=== PATIENT | male | born 1970 | race Caucasian/White ===

== ENCOUNTER 2018-11-20 14:32 | Emergency (ER) | payer OTHER ==
[2018-11-20 14:44] VITALS: BP 140/87
--- NOTE | 2018-11-20 15:01 | UC ---
UC General HPI - HPI Summary HPI Summary: pain in L forefoot for bout 3 weeks. it began after he wore a new pair of shoes. he has since gone back to the old pair. he has self tx with gel inserts with no relief. the pain is sharp and sometimes shoots upward. he notes mild swelling. no fever, rash or injury. best upon waking then worsens during day while walking. - History of Current Complaint Chief Complaint: UCLowerExtremity Stated Complaint: LEFT FOOT COMPLAINT Time Seen by Provider: 11/20/18 14:54 Hx Obtained From: Patient Onset/Duration: Gradual Onset Timing: Constant Pain Intensity: 6 Associated Signs & Symptoms: Positive: Edema. Negative: Fever - Allergy/Home Medications Allergies/Adverse Reactions: Allergies Allergy/AdvReac Type Severity Reaction Status Date / Time No Known Allergies Allergy Verified 11/20/18 14:45 PMH/Surg Hx/FS Hx/Imm Hx Previously Healthy: Yes - Surgical History Surgical History: Yes Surgery Procedure, Year, and Place: Vasectomy - Family History Known Family History: Positive: Diabetes - Possibly in father - Social History Occupation: Employed Full-time Alcohol Use: None Substance Use Type: None Smoking Status (MU): Never Smoked Tobacco - Immunization History Vaccination Up to Date: Yes Review of Systems All Other Systems Reviewed And Are Negative: Yes Constitutional: Positive: Negative Skin: Positive: Negative Eyes: Positive: Negative ENT: Positive: Negative Respiratory: Positive: Negative Cardiovascular: Positive: Negative Gastrointestinal: Positive: Negative Genitourinary: Positive: Negative Motor: Positive: Negative Neurovascular: Positive: Negative Neurological: Negative: Weakness, Paresthesia, Numbness Psychological: Positive: Negative Physical Exam Triage Information Reviewed: Yes Appearance: Well-Appearing Vital Signs: Initial Vital Signs Temp 98.7 F 11/20/18 14:41 Pulse 90 11/20/18 14:41 Resp 14 11/20/18 14:41 BP 140/87 11/20/18 14:41 Pulse Ox 98 11/20/18 14:41 Vital Signs Reviewed: Yes Eyes: Positive: Conjunctiva Clear ENT: Positive: Normal ENT inspection Neck: Positive: Supple Respiratory: Positive: Lungs clear Cardiovascular: Positive: RRR Abdomen Description: Positive: Nontender Bowel Sounds: Positive: Present Musculoskeletal: Positive: Other: - Feet: L with mild swelling at junction of ball and forefoot compared to R. The same area is mildly tender. No erythema, warmth or fluctuance. Standing shows mild flattening to arches L>R and mild eversion on L. feet have full s/v/m function. Neurological: Positive: Alert Psychological: Positive: Age Appropriate Behavior Skin Exam: Normal Skin: Negative: Rashes Course/Dx - Course Course Of Treatment: I folded over a 2x2" gauze and placed it just below the ball of foot. pt ambulated and noted that gave him relief. pt will purchase an otc cushion designed for the forefoot, tx with nsaid and refer to orthopedics who may be able to arrange an orthodic if they feel it is indicated. - Differential Dx - Multi-Symptom Differential Diagnoses: Other - tarsal tunnel, plantar fasciiits, metatarsalgia. no concern for infection or fx. - Diagnoses Provider Diagnosis: Metatarsalgia of left foot Discharge - Sign-Out/Discharge Documenting (check all that apply): Patient Departure All imaging exams completed and their final reports reviewed: No Studies - Discharge Plan Condition: Stable Disposition: HOME Prescriptions: Naproxen [Naprosyn 500 mg tab] 500 mg PO BID 5 Days #10 tablet Patient Education Materials: Metatarsalgia (DC) Referrals: Arun Gifford MD [Medical Doctor] - As Soon As Possible Additional Instructions: wear a cushion designed for the forefoot as demonstrated here. - Billing Disposition and Condition Condition: STABLE Disposition: Home
== END 2018-11-20 15:25 | disposition home or self-care (01) ==
LOC: UCCORT 14:32
DX: M77.42 Metatarsalgia, left foot (principal)
CPT/HCPCS: 99212; G0463

== ENCOUNTER 2018-12-21 16:19 | Emergency (ER) | payer OTHER ==
[2018-12-21 16:38] VITALS: BP 133/89
--- NOTE | 2018-12-21 16:53 | UC ---
Throat Pain/Nasal Kg HPI - HPI Summary HPI Summary: Patient has had sinus issues for 3 weeks, has developed a muffled voice feels like laryngitis, denies pain, although has some sinus pressure. no fever. - History of Current Complaint Chief Complaint: UCGeneralIllness Stated Complaint: COUGH,FEVER Time Seen by Provider: 12/21/18 16:38 Hx Obtained From: Patient Onset/Duration: Sudden Onset, Lasting Weeks Severity: Mild Pain Intensity: 0 Associated Signs & Symptoms: Positive: Dysphagia, Hoarseness, Sinus Discomfort - Allergies/Home Medications Allergies/Adverse Reactions: Allergies Allergy/AdvReac Type Severity Reaction Status Date / Time No Known Allergies Allergy Verified 12/21/18 16:35 Home Medications: Home Medications Phenylephrine/Dm/Acetaminop/GG [Mucinex Fast-Max Cold Flu] 1 dose PO ONCE PRN [History Confirmed 12/21/18] PMH/Surg Hx/FS Hx/Imm Hx Previously Healthy: Yes - Surgical History Surgical History: Yes Surgery Procedure, Year, and Place: Vasectomy - Family History Known Family History: Positive: Diabetes - Possibly in father - Social History Alcohol Use: None Substance Use Type: None Smoking Status (MU): Never Smoked Tobacco - Immunization History Vaccination Up to Date: Yes Review of Systems All Other Systems Reviewed And Are Negative: Yes Constitutional: Positive: Negative Skin: Positive: Negative Eyes: Positive: Negative ENT: Positive: Nasal Discharge, Sinus Congestion Respiratory: Positive: Cough Cardiovascular: Positive: Negative Gastrointestinal: Positive: Negative Genitourinary: Positive: Negative Motor: Positive: Negative Neurovascular: Positive: Negative Musculoskeletal: Positive: Negative Neurological: Positive: Negative Psychological: Positive: Negative Is Patient Immunocompromised?: No Physical Exam Triage Information Reviewed: Yes Appearance: Well-Nourished, Ill-Appearing, Pain Distress Vital Signs: Initial Vital Signs Temp 99.1 F 12/21/18 16:35 Pulse 68 12/21/18 16:35 Resp 16 12/21/18 16:35 BP 133/89 12/21/18 16:35 Pulse Ox 98 12/21/18 16:35 Vital Signs Reviewed: Yes Eye Exam: Normal ENT: Positive: Pharyngeal erythema - with PND, Nasal congestion, Nasal drainage , TMs normal Dental Exam: Normal Neck exam: Normal Neck: Positive: Supple, Nontender, No Lymphadenopathy Respiratory Exam: Normal Respiratory: Positive: Chest non-tender, Lungs clear, Normal breath sounds Cardiovascular Exam: Normal Abdominal Exam: Normal Bowel Sounds: Positive: Present Musculoskeletal Exam: Normal Neurological Exam: Normal Psychological Exam: Normal Skin Exam: Normal Throat Pain/Nasal Course/Dx - Course Course Of Treatment: hx obtained, exam performed, meds reviewed, treaed for rhinosinusitis and laryngitis - Differential Dx/Diagnosis Differential Diagnosis/HQI/PQRI: Laryngitis, Otitis Media, Pharyngitis, Sinusitis Provider Diagnosis: Sinusitis, Laryngitis Discharge - Sign-Out/Discharge Documenting (check all that apply): Patient Departure All imaging exams completed and their final reports reviewed: No Studies - Discharge Plan Condition: Stable Disposition: HOME Prescriptions: predniSONE [Prednisone 20 MG TAB] 40 mg PO DAILY #14 tablet Patient Education Materials: Laryngitis (ED), Rhinosinusitis (ED) Referrals: Naida Houston [Primary Care Provider] - Additional Instructions: 1. take the medication as prescribed. 2. Warm fluids and continue with the mucinex as needed. 3. follow up as needed. - Billing Disposition and Condition Condition: STABLE Disposition: Home
== END 2018-12-21 17:01 | disposition home or self-care (01) ==
LOC: UCCORT 16:19
DX: J32.9 Chronic sinusitis, unspecified (principal); J04.0 Acute laryngitis
CPT/HCPCS: 99212; G0463

== ENCOUNTER 2019-02-28 16:54 | Emergency (ER) | payer OTHER ==
[2019-02-28 17:31] VITALS: BP 127/77
--- NOTE | 2019-02-28 18:22 | UC ---
Complaint Male HPI - HPI Summary HPI Summary: 48 yo male with left testicular pain x 1 day ? swelling hurts to walk or lift hx vasectomy, vaso vasotomy and vasectomy no dysuria lifts a lot - History of Current Complaint Chief Complaint: UCGeneralIllness Stated Complaint: PERSONAL Time Seen by Provider: 02/28/19 17:59 Hx Obtained From: Patient Onset/Duration: Gradual Onset, Lasting Days Timing: Constant Severity Initially: Mild Severity Currently: Severe Pain Intensity: 8 Pain Scale Used: 0-10 Numeric Location: Testicle Character: Constant Pressure Aggravating Factor(s): Palpation Alleviating Factor(s): Nothing Associated Signs And Symptoms: Negative: Diaphoresis, Back Pain, Fever, Hematuria, Dysuria, Constipation, Blood in Stool, Rectal Pain, Appetite, Nausea , Vomiting(# Of Episodes =), Penile Swelling, Penile Discharge - Risk Factors Testicular Torsion: Negative - Allergies/Home Medications Allergies/Adverse Reactions: Allergies Allergy/AdvReac Type Severity Reaction Status Date / Time ibuprofen Allergy See Comment Verified 02/28/19 17:26 PMH/Surg Hx/FS Hx/Imm Hx Previously Healthy: Yes - Surgical History Surgical History: Yes Surgery Procedure, Year, and Place: Vasectomy - Family History Known Family History: Positive: Hypertension, Diabetes - Possibly in father - Social History Alcohol Use: None Substance Use Type: None Smoking Status (MU): Never Smoked Tobacco - Immunization History Vaccination Up to Date: Yes Review of Systems All Other Systems Reviewed And Are Negative: Yes Constitutional: Positive: Negative Skin: Positive: Negative Eyes: Positive: Negative ENT: Positive: Negative Respiratory: Positive: Negative Cardiovascular: Positive: Negative Gastrointestinal: Positive: Negative Genitourinary: Positive: Other - left testicular pain radiating to left groin Motor: Positive: Negative Neurovascular: Positive: Negative Musculoskeletal: Positive: Negative Neurological: Positive: Negative Psychological: Positive: Negative Physical Exam Triage Information Reviewed: Yes Appearance: Well-Appearing, No Pain Distress, Well-Nourished Vital Signs: Initial Vital Signs Temp 99.3 F 02/28/19 17:26 Pulse 100 02/28/19 17:26 Resp 18 02/28/19 17:26 BP 127/77 02/28/19 17:26 Pulse Ox 98 02/28/19 17:26 Vital Signs Reviewed: Yes Eyes: Positive: Conjunctiva Clear ENT: Positive: Hearing grossly normal. Negative: Nasal congestion, Nasal drainage, Tonsillar swelling, Tonsillar exudate Dental Exam: Normal Neck: Positive: Nontender, No Lymphadenopathy Respiratory: Positive: Lungs clear, Normal breath sounds, No respiratory distress Cardiovascular: Positive: RRR, No Murmur Abdomen Description: Positive: Nontender, No Organomegaly. Negative: CVA Tenderness (R), CVA Tenderness (L) Bowel Sounds: Positive: Present Male Genital Exam: Positive: Normal Genitalia, No Hernia - tender left inguinal canal, Epididymal Tenderness - L, Inguinal Tenderness - L, Other - scrotal varicies L>>R. Negative: Hernia Mass, High Riding Prostate, Urethral Discharge Musculoskeletal: Positive: ROM Intact, No Edema Neurological: Positive: Alert Psychological Exam: Normal Diagnostics - Laboratory Lab Results: UA +++ RBCs. ++ leuks Complaint Male Course/Dx - Differential Dx/Diagnosis Provider Diagnosis: Left epididymitis Discharge - Sign-Out/Discharge Documenting (check all that apply): Patient Departure All imaging exams completed and their final reports reviewed: No Studies - Discharge Plan Condition: Stable Disposition: HOME Prescriptions: DOXYcycline CAP(*) [DOXYcycline 100MG CAP(*)] 100 mg PO BID #14 cap Patient Education Materials: Epididymitis (ED) Forms: *Work Release Referrals: Naida Houston [Primary Care Provider] - 3 Days Additional Instructions: you urine specimen was abnormal and indicated a possible infection test are pending to ER for new or worsening symptoms see your provider early next week if not improved you may need testicular Ultrasound or urologic referral - Billing Disposition and Condition Condition: STABLE Disposition: Home
[2019-03-03 14:05] LABS: Neisseria gonorrhoeae (GC) RNA Negative (Negative)
== END 2019-02-28 18:39 | disposition home or self-care (01) ==
LOC: UCCORT 16:54
DX: N45.1 Epididymitis (principal); Z88.8 Allergy status to other drugs, medicaments and biological substances
CPT/HCPCS: 81003; 87086; 87491; 87591; 99212; G0463

== ENCOUNTER 2019-05-10 17:42 | Emergency (ER) | payer OTHER ==
--- OUTSIDE RECORDS SUMMARY | 2019-05-10 17:48 | XMS REPORT | Continuity of Care Document ---
:1970 External Reference #:[id number] Author Name Stephanie Inman PA Address [address] [place] [address] [address] Care Team Providers Name Role Phone Naida Houston NP Care Team Information International Nurse Unavailable Naida Houston NP Primary Care Physician Unavailable Payers Date Identification Numbers Payment Provider Subscriber Policy Number: [id number] [employer] Atul Siddiqui JR PayID: [id number] [address] [place] [address] Problems Active Problems Provider Date Sprain of ankle Stephanie Inman PA Onset: 04/22/2019 Closed fracture of cuboid bone of foot Stephanie Inman PA Onset: 04/22/2019 Family History Date Family Member(s) Observation Comments Father Neuropathy Father Stroke x3 Social History Type Date Description Comments Sex Unknown Marital Status Lives With Lives With Children 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 [employer] Right-handed Tobacco Use Start: Unknown Never Smoked Cigarettes Smoking Status Reviewed: 04/22/19 Never Smoked Cigarettes ETOH Use Currently consumes alcohol socially Tobacco Use Start: Unknown Patient denies history of smoking Recreational Drug Use Never Used Drugs Allergies, Adverse Reactions, Alerts Active Allergies Reaction Severity Comments Date Prednisone hematuria 03/11/2019 Inactive Allergies NKDA 06/18/2015 Medications Active Medications SIG Qnty Indications Ordering Date Provider Ibuprofen 3 Times A Day as 30tabs Unknown 04/22/2019 600mg Needed as needed Tablets for Pain Ventolin HFA 1-2 puffs q 4-6 1units Milo, 12/16/2013 hours prgabi Hernández MD 108mcg/Act Aerosol Doxycycline Hyclate 1 by mouth twice a 20caps Raoul Schmidt, day M.D. 100mg Capsules Proair HFA Every 4 To 6 HRS 18units Unknown as needed for 108(90Base) mcg/Act Shortness Of Aerosol Breath History Medications Cetirizine HCL 1 by mouth 30tabs Betty Pedraza, 06/18/2014 - Unknown 10mg every day MD Tablets Loratadine 1 by mouth 90tabs Betty Pedraza, 12/16/2013 - Unknown 10mg Tablets every day MD Immunizations CPT Code Status Date Vaccine Lot # [id number] Given 12/16/2013 flu vaccination Vital Signs Date Vital Result Comment 04/22/2019 2:33pm BP Systolic 123 mmHg BP Diastolic 82 mmHg Body Temperature 97.0 F Heart Rate 88 /min Height 69 inches 5'9" Weight 187.00 lb BMI (Body Mass Index) 27.6 kg/m2 BSA (Body Surface Area) 2.01 m2 [place] body weight in kilograms 73 kg O2 % BldC Oximetry 97 % 03/24/2019 4:11pm BP Systolic 122 mmHg BP Diastolic 76 mmHg Body Temperature 98.3 F Heart Rate 76 /min Respiratory Rate 16 /min Weight 190.50 lb O2 % BldC Oximetry 95 % Ra Pain Level 0 03/11/2019 2:37pm BP Systolic Sitting Right Arm 143 mmHg BP Diastolic Sitting Right Arm 85 mmHg Body Temperature 97.8 F Heart Rate 70 /min Respiratory Rate 16 /min Weight 192.00 lb O2 % BldC Oximetry 98 % 06/18/2014 10:56am BP Systolic 118 mmHg BP Diastolic 78 mmHg Body Temperature 97.7 F Weight 184.00 lb 04/09/2014 2:50pm BP Systolic 116 mmHg BP Diastolic 66 mmHg Body Temperature 98.5 F Height 69 inches 5'9" Weight 175.00 lb 12/16/2013 10:39am BP Systolic 122 mmHg BP Diastolic 74 mmHg Height 70 inches 5'10" Weight 185.00 lb 02/21/2012 2:57pm BP Systolic 128 mmHg BP Diastolic 84 mmHg Body Temperature 97.6 F Heart Rate 72 /min Respiratory Rate 18 /min Height 68 inches 5'8" Weight 189.00 lb Results Test Date Facility Test Result H/L Range Note Urine Screen 06/19/2014 N2N/CCD Import Urine Bilirubin - Negative Negative Dipstick Urine Blood Trace Negative Urine Clarity Cloudy Clear Urine Color Yellow Yellow Urine Glucose - Dipstick Negative mg/dL Negative Urine Ketone Negative mg/dL Negative Urine Leuk Esterase Negative Negative Urine Nitrite - Dipstick Negative Negative Urine PH 7.0 6.5-7.5 Urine Protein - Dipstick Negative mg/dL Negative Urine Specific [place] 1.025 1.010-1.030 Urine Urobilinogen - Dipstick 0.2 E.U./dL 0.2-1.0 Laboratory test finding 06/18/2014 N2N/CCD Import Urine Culture See Note 1 1 NO GROWTH: FINAL REPORT Procedures Date Code Description Status 04/22/2019 20138 Radiology, Foot, Complete-3 Views Completed 04/22/2019 54308 Tarsal bone fx wo/manipulation Completed Encounters Type Date Location Provider Dx Diagnosis Office Visit 04/22/2019 Orthopaedic Office Stephanie Inman, M25.572 Pain in left 2:30p PA ankle and joints of left foot S92.215A Nondisp fx of cuboid bone of left foot, init for clos fx S93.402A Sprain of unspecified ligament of left ankle, init encntr Office Visit 03/24/2019 4:00p Urology Gagan Salas N50.819 Testicular pain, RRosa M, PA unspecified I86.1 Scrotal varices Office Visit 03/11/2019 2:30p Urology Gagan Salas N43.42 Spermatocele of R., PA epididymis, multiple Plan of Treatment Future Appointment(s):05/14/2019 8:45 am - Stephanie Inman PA at [facility]/23/2019 4:00 pm - Gagan Salas PA at [id number]/22/2019 - Stephanie Inman, PAM25.572 Pain in left ankle and joints of left footS92.215A Nondisplaced fracture of cuboid bone of left foot, initial encounter for closed fractureComments:I recommended immobilization in a cam walker. He may weight- bear as tolerated. I do think that this can help both the fracture and the ankle sprain. Return for follow-up and repeat exam and x-ray in3 weeks.S93.402A Sprain of unspecified ligament of left ankle, initial encounterAllFollow up:3wk
[2019-05-10 17:57] VITALS: BP 158/98
--- NOTE | 2019-05-10 18:16 | UC ---
Lower Extremity/Ankle HPI - HPI Summary HPI Summary: 48 yo male states he fractured the base of his 5th MT of the left foot about 04/22 seen by an orthopedist given cam boot he has been non compliant with it but has been wearing a gel splint re-injured it yesterday - History of Current Complaint Chief Complaint: UCLowerExtremity Stated Complaint: LT ANKLE INJURY Time Seen by Provider: 05/10/19 17:47 Hx Obtained From: Patient Onset/Duration: Sudden Onset, Lasting Hours Severity Initially: Severe Severity Currently: Severe Pain Intensity: 13 Pain Scale Used: 0-10 Numeric Aggravating Factor(s): Standing, Ambulation Alleviating Factor(s): Other - he 's oxy helped Able to Bear Weight: Yes Feet (Multiple View): 1 - tender /swollen - Allergies/Home Medications Allergies/Adverse Reactions: Allergies Allergy/AdvReac Type Severity Reaction Status Date / Time ibuprofen Allergy See Comment Verified 05/10/19 17:57 Home Medications: Home Medications Ibuprofen TAB* [Motrin TAB* 600 MG] 600 mg PO Q6H PRN 05/10/19 [History Confirmed 05/10/19] PMH/Surg Hx/FS Hx/Imm Hx Previously Healthy: Yes Respiratory History: Asthma - Surgical History Surgical History: Yes Surgery Procedure, Year, and Place: Vasectomy - Family History Known Family History: Positive: Hypertension, Diabetes - Possibly in father - Social History Alcohol Use: Occasionally Substance Use Type: None Smoking Status (MU): Never Smoked Tobacco - Immunization History Vaccination Up to Date: Yes Review of Systems All Other Systems Reviewed And Are Negative: Yes Constitutional: Positive: Negative Skin: Positive: Negative Eyes: Positive: Negative ENT: Positive: Negative Respiratory: Positive: Negative Cardiovascular: Positive: Negative Gastrointestinal: Positive: Negative Genitourinary: Positive: Negative Motor: Positive: Negative Neurovascular: Positive: Negative Musculoskeletal: Positive: Arthralgia - right foot Neurological: Positive: Negative Psychological: Positive: Negative Physical Exam Triage Information Reviewed: Yes Appearance: Well-Appearing, No Pain Distress, Well-Nourished Vital Signs: Initial Vital Signs Temp 99.8 F 05/10/19 17:49 Pulse 92 05/10/19 17:49 Resp 16 05/10/19 17:49 BP 158/98 05/10/19 17:49 Pulse Ox 100 05/10/19 17:49 Vital Signs Reviewed: Yes Eyes: Positive: Conjunctiva Clear ENT: Positive: Normal ENT inspection. Negative: Nasal congestion, Nasal drainage, Trismus, Hoarse voice Neck: Positive: Supple, Nontender, No Lymphadenopathy Respiratory: Positive: Lungs clear, Normal breath sounds, No respiratory distress, No accessory muscle use Cardiovascular: Positive: RRR, No Murmur Musculoskeletal: Positive: ROM Intact, Edema @ - see image, Other: - antalgic gait Neurological: Positive: Alert Psychological Exam: Normal Skin Exam: Normal Diagnostics - Radiology No standard instances Radiology Interpretation Completed By: ED Physician Summary of Radiographic Findings: fx cuboid Lower Extremity Course/Dx - Differential Dx/Diagnosis Provider Diagnosis: Left cuboid fracture Discharge - Sign-Out/Discharge Documenting (check all that apply): Patient Departure All imaging exams completed and their final reports reviewed: No - Discharge Plan Condition: Stable Disposition: HOME Prescriptions: HYDROcodone/ACETAMIN 5-325 MG* [[place] 5-325 TAB*] 1 tab PO BEDTIME PRN #5 tab MDD 1 PRN Reason: Pain Patient Education Materials: Foot Fracture in Adults (ED) Referrals: Naida Houston [Primary Care Provider] - Additional Instructions: You need to use your CAM boot you need to use your crutches you need to follow up with your orthopedist - Billing Disposition and Condition Condition: STABLE Disposition: Home
--- NOTE | 2019-05-11 18:44 | UC ---
- Progress Note Progress Note: The x-ray interpretation by radiologist as consistent with Dr. lopez's interpretation. No Change in treatment. Course/Dx - Diagnoses Provider Diagnoses: Left cuboid fracture Discharge - Sign-Out/Discharge Documenting (check all that apply): Post-Discharge Follow Up All imaging exams completed and their final reports reviewed: No - Discharge Plan Condition: Stable Disposition: HOME Prescriptions: HYDROcodone/ACETAMIN 5-325 MG* [[place] 5-325 TAB*] 1 tab PO BEDTIME PRN #5 tab MDD 1 PRN Reason: Pain Patient Education Materials: Foot Fracture in Adults (ED) Referrals: Naida Houston [Primary Care Provider] - Additional Instructions: You need to use your CAM boot you need to use your crutches you need to follow up with your orthopedist - Billing Disposition and Condition Condition: STABLE Disposition: Home
--- NOTE | 2019-05-11 18:45 | UC ---
Course/Dx - Diagnoses Provider Diagnoses: Left cuboid fracture Discharge - Sign-Out/Discharge Documenting (check all that apply): Post-Discharge Follow Up All imaging exams completed and their final reports reviewed: Yes - Discharge Plan Condition: Stable Disposition: HOME Prescriptions: HYDROcodone/ACETAMIN 5-325 MG* [[place] 5-325 TAB*] 1 tab PO BEDTIME PRN #5 tab MDD 1 PRN Reason: Pain Patient Education Materials: Foot Fracture in Adults (ED) Referrals: Naida Houston [Primary Care Provider] - Additional Instructions: You need to use your CAM boot you need to use your crutches you need to follow up with your orthopedist - Billing Disposition and Condition Condition: STABLE Disposition: Home
== END 2019-05-10 18:46 | disposition home or self-care (01) ==
LOC: UCCORT 17:42
DX: S92.212A Displaced fracture of cuboid bone of left foot, initial encounter for closed fracture (principal); X58.XXXA Exposure to other specified factors, initial encounter; Y92.9 Unspecified place or not applicable; Z91.19 Patient's noncompliance with other medical treatment and regimen
CPT/HCPCS: 99212; G0463